=== PATIENT | male | born 1960 | race Caucasian/White ===

== ENCOUNTER 2018-05-06 10:24 | Inpatient (IN) | payer OTHER ==
[~2018-05-06] VITALS: Ht 172.7 cm; Wt 156.3 kg
[2018-05-06] VITALS (7 sets, daily range): BP systolic 74–133; BP diastolic 30–85
[~2018-05-06 10:24] MED LIST: AUGMENTIN 875875 MG PO; LEVOTHYROXINE 0.15MG PO; METFORMIN HCL500 MG PO; NORCO 5-325 TA1 EACH PO; NOVOLOG100 UNIT/1 SUBQ; PREDNISONE 10 M10 MG PO; TRAMADOL 50 MG50 MG PO
[2018-05-06] MEDS ORDERED: LEVOXYL175 MCG PO (10:35)
[2018-05-06] MEDS ORDERED: LISINOPRIL10 MG PO (10:35)
[2018-05-06] MEDS ORDERED: GLYBURIDE 5 MG T5 M1 PO (10:36)
[2018-05-06] MEDS ORDERED: ZOCOR40 MG PO (10:36)
[2018-05-06] MEDS ORDERED: MULTIVITAMINS1 EAC7 PO (10:36)
[2018-05-06 10:43] LABS: HEMATOCRIT 41.6 % (42.0-52.0); HEMOGLOBIN 13.2 gm/dL (14.0-18.0); MCH 29.5 pg (26.0-34.0); MCHC 31.7 g/dL (28.0-37.0); MCV 93.1 fL (80.0-100.0); MPV 10.8 fl. (7.2-11.1); NUCLEATED RBCS 0 /100WBC; PLATELET COUNT* 379 thou/uL (150-400); RBC 4.47 mil/uL (4.50-6.00); RDW-CV 14.2 % (10.5-14.5); WBC 26.5 thou/uL (4.0-11.0)
[2018-05-06 10:52] LABS: ANION GAP 23 mmol/L (7-16); BUN 35 mg/dL (7-18); CALCIUM 8.8 mg/dL (8.5-10.1); CHLORIDE 90 mmol/L (98-107); CO2 17 mmol/L (21-32); CREATININE 1.8 mg/dL (0.6-1.3); GLUCOSE 466 mg/dL (70-99); POTASSIUM 3.8 mmol/L (3.5-5.1); SODIUM 130 mmol/L (136-145)
[2018-05-06 10:56] LABS: APTT 33.5 Seconds (25.0-31.3)
[2018-05-06 11:01] LABS: URINE BLOOD 2+ (Negative); URINE CLARITY CLEAR; URINE COLOR YELLOW; URINE GLUCOSE-RANDOM 2+ (Negative); URINE KETONES 2+ (Negative); URINE LEUKOCYTES-REFLEX NEGATIVE (Negative); URINE NITRITE-REFLEX NEGATIVE (Negative); URINE PROTEIN 3+ (Negative); URINE SPECIFIC GRAVITY >= 1.030 (1.005-1.030); URINE UROBILINOGEN 0.2 E.U./dl (0.2-1.0)
[2018-05-06 11:02] LABS: ICTOTEST (BILI CONFIRMATORY) Negative (Negative); URINE BILIRUBIN 1+ (Negative)
[2018-05-06 11:04] LABS: ABSOLUTE EOSINOPHILS 0.3 thou/uL (0.0-0.7); ABSOLUTE LYMPHOCYTES 1.1 thou/uL (0.8-5.3); ABSOLUTE MONOCYTES 0.8 thou/uL (0.0-1.2); ABSOLUTE NEUTROPHILS 24.4 thou/uL (1.6-8.1); ALBUMIN 1.5 g/dL (3.4-5.0); ALKALINE PHOSPHATASE 112 U/L (46-116); HYPOCHROMASIA 1+; MAGNESIUM 2.8 mg/dL (1.8-2.4); NT-PRO BRAIN NAT PEPTIDE 1515 pg/mL (<300); PLATELET ESTIMATE INCREASED; SGOT 29 U/L (15-37); SGPT 20 U/L (30-65); TOTAL BILIRUBIN 0.6 mg/dL (<0.1-1.0); TOTAL PROTEIN 8.1 g/dL (6.4-8.2); TOXIC GRANULATION 1+; TROPONIN-I LEVEL <0.06 ng/mL (<0.06)
[2018-05-06 11:10] LABS: INFLUENZA A ANTIGEN None Detected (None Detect); INFLUENZA B ANTIGEN None Detected (None Detect)
[2018-05-06 11:10] LABS: AMORPHOUS URATES Few /LPF (None Seen); CASTS None Seen /LPF (None Seen); SQUAMOUS 0-3 Few /LPF (0-3); URINE RBC 0-2 Rare /HPF (0-2); URINE WBC-REFLEX 0-5 Rare /HPF (0-5)
[2018-05-06 11:39] LABS: BE -11.4 mmol/L (-2 to +3); HCO3 13.6 mmol/L (22.0-26.0); PCO2 28.8 mmHg (35.0-45.0); PO2 116.5 mmHg (75.0-100.0)
[2018-05-06 11:40] LABS: pH 7.293 (7.340-7.450)
[2018-05-06 13:39] LABS: TROPONIN-I LEVEL 0.1 ng/mL (<0.06)
[2018-05-06 14:04] LABS: BE -26.5 mmol/L (-2 to +3); PO2 114.7 mmHg (75.0-100.0)
[2018-05-06 14:06] LABS: PCO2 62.8 mmHg (35.0-45.0); pH 6.774 (7.340-7.450)
[2018-05-06 15:18] LABS: BE -21.8 mmol/L (-2 to +3); PCO2 49.1 mmHg (35.0-45.0)
[2018-05-06 15:19] LABS: HCO3 10.4 mmol/L (22.0-26.0); pH 6.945 (7.340-7.450)
[2018-05-06 16:30] LABS: HEMATOCRIT 43.5 % (42.0-52.0); HEMOGLOBIN 12.5 gm/dL (14.0-18.0); MCH 29.4 pg (26.0-34.0); MCHC 28.8 g/dL (28.0-37.0); MPV 10.5 fl. (7.2-11.1); RBC 4.26 mil/uL (4.50-6.00); RDW-CV 16.3 % (10.5-14.5); WBC 35.1 thou/uL (4.0-11.0)
[2018-05-06 16:39] LABS: CALCIUM 8.7 mg/dL (8.5-10.1); POTASSIUM 4.7 mmol/L (3.5-5.1)
[2018-05-06 16:42] LABS: CREATININE 2.9 mg/dL (0.6-1.3)
[2018-05-06 16:48] LABS: TOTAL BILIRUBIN 0.7 mg/dL (<0.1-1.0); TOTAL PROTEIN 6.3 g/dL (6.4-8.2)
[2018-05-06 16:52] LABS: TROPONIN-I LEVEL 0.78 ng/mL (<0.06)
[2018-05-06 17:09] LABS: INR 1.4; PROTIME 13.9 Seconds (9.20-11.50)
[2018-05-06 17:29] LABS: ALBUMIN 1.1 g/dL (3.4-5.0)
[2018-05-06 18:28] LABS: BE -15.8 mmol/L (-2 to +3); HCO3 13.6 mmol/L (22.0-26.0); PCO2 45.6 mmHg (35.0-45.0); PO2 60.8 mmHg (75.0-100.0)
[2018-05-06 18:30] LABS: pH 7.093 (7.340-7.450)
[2018-05-06 21:13] LABS: BE -18.1 mmol/L (-2 to +3); HCO3 12.4 mmol/L (22.0-26.0); PCO2 47.7 mmHg (35.0-45.0)
[2018-05-06 21:14] LABS: pH 7.034 (7.340-7.450)
[2018-05-06 21:36] LABS: CALCIUM 7.2 mg/dL (8.5-10.1); CREATININE 3.3 mg/dL (0.6-1.3)
[2018-05-06 21:38] LABS: POTASSIUM 3.2 mmol/L (3.5-5.1)
[2018-05-06 21:44] LABS: ALBUMIN 0.9 g/dL (3.4-5.0); PHOSPHORUS* 8.6 mg/dL (2.5-4.9)
[2018-05-06 22:02] LABS: TROPONIN-I LEVEL 2.18 ng/mL (<0.06)
[2018-05-06 22:19] LABS: CK-MB MASS 21.9 ng/mL (<0.5-3.6)
[2018-05-06 23:33] LABS: INR 1.8; PROTIME 18.6 Seconds (9.20-11.50)
[2018-05-06 23:40] LABS: FIBRINOGEN 493 mg/dL (200-340)
[2018-05-07 00:22] LABS: BE -23.1 mmol/L (-2 to +3)
[2018-05-07 00:23] LABS: HCO3 10.7 mmol/L (22.0-26.0); PCO2 60.3 mmHg (35.0-45.0); PO2 58.3 mmHg (75.0-100.0); pH 6.866 (7.340-7.450)
[2018-05-07 01:31] LABS: BE -25.8 mmol/L (-2 to +3); PO2 66.4 mmHg (75.0-100.0)
[2018-05-07 01:32] LABS: HCO3 7.7 mmol/L (22.0-26.0)
[2018-05-07 02:17] LABS: ALBUMIN 0.8 g/dL (3.4-5.0); CALCIUM 6.9 mg/dL (8.5-10.1); CREATININE 3.3 mg/dL (0.6-1.3); MAGNESIUM 3.4 mg/dL (1.8-2.4); PHOSPHORUS* 12.3 mg/dL (2.5-4.9)
[2018-05-07 02:31] LABS: POTASSIUM 4.4 mmol/L (3.5-5.1)
[2018-05-07 04:00] VITALS: BP 56/48
[2018-05-07 05:00] VITALS: BP 55/36; BP 56/48
--- NOTE | 2018-05-07 12:55 | EKG ---
[place] [address] ELECTROCARDIOGRAM REPORT Name: TEREZA GARZA Room: [address] ADM IN .R.#: [id number] Admission: 05/06/18 Attend Phys: Allison Early Discharge: Date of : 58 Report #: [id number] THIS REPORT FOR: //name// [facility] ED Test Date: 2018-05-06 Test Time: 10:29:54 Pat Name: TEREZA GARZA Department: Room: [facility] Gender: M Director Supply: VERNON : 1960 Requested By: Maame Muñoz Order Number: [id number] Lora MD: Reji Sanchez Measurements Intervals [place] Rate: 135 P: 20 AL: 101 QRS: -78 QRSD: 134 T: 1 QT: 320 QTc: 480 Interpretive Statements artifacts Sinus tachycardia Right bundle branch block Inferior infarct, old Compared to ECG 10/22/2016 01:34:07 No significant changes Electronically Signed On 05-07-2018 12:55:09 CDT by Reji Sanchez [email or web address] <ELECTRONICALLY SIGNED> By: Reji Sanchez MD, [facility] 05/07/18 [id number] 1029 1029 Reji Sanchez MD, [facility] /EPI
--- NOTE | 2018-05-07 12:57 | EKG ---
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
--- NOTE | 2018-05-14 12:28 | CON ---
[facility] [address] [place] [address] CONSULTATION Name: TEREZA GARZA Room: [address]#: [id number] Admission: 05/06/18 Attend Phys: Allison Early Discharge: 05/07/18 Date of : 58 Report #: [id number] THIS REPORT FOR: //name// CC: Aki Lopez TYPE OF REPORT: Cardiology consultation. INDICATION: Ventricular arrhythmias in the setting of respiratory arrest. HISTORY OF PRESENT ILLNESS: The patient is a morbidly obese 57-year-old gentleman with no documented prior cardiac history with the exception of hypertension. The patient apparently has been having increasing shortness of breath for the last 2 weeks. The patient was brought to the Emergency Room on BiPAP. The patient had rapid decline with associated hypoxia and bradycardia prompting initiation of a code blue. The patient was given atropine followed by epinephrine and intubated. Shortly thereafter, the patient developed ventricular fibrillation and tachycardia for which he was cardioverted. He had had some pulseless electrical activity prior to this according to the ER runner. The patient was placed on multiple pressors, given fluid boluses and IV antibiotics and is in critical condition at the time of my evaluation. The patient is a morbidly obese white male who is intubated and presently in the Emergency Room. No history is available beyond that described above. Initial EKG showed sinus tachycardia with right bundle-branch block. There are diffuse ST-segment changes noted with the tachycardia. His initial troponin is 0.1. PAST MEDICAL HISTORY: 1. Diabetes. 2. Hypertension. 3. Hypothyroidism. 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 ALLERGIES: No known drug allergies. HOME MEDICATIONS: Glyburide 5 mg p.o. b.i.d., levothyroxine 175 mcg daily, lisinopril 10 mg daily, metformin 500 mg q.a.c., multivitamin 1 tablet daily and simvastatin 40 mg daily. FAMILY HISTORY: Not obtainable. SOCIAL HISTORY: Not obtainable. REVIEW OF SYSTEMS: Not obtainable. PHYSICAL EXAMINATION: VITAL SIGNS: Presently, blood pressure is 88/52 with a pulse rate of 112. GENERAL: This is a morbidly obese white male [place] [address] CONSULTATION Name: TEREZA GARZA Room: [address]#: [id number] Admission: 05/06/18 Attend Phys: Allison Early Discharge: 05/07/18 Date of : 58 Report #: [id number] cyanotic in appearance. HEENT: Head is normocephalic and atraumatic. Mucous membranes appear moist. NECK: Thick without obvious jugular venous distention. CHEST: Reveals diffusely decreased breath sounds with rhonchi bilaterally. CARDIOVASCULAR: Reveals a tachycardic rhythm with distant S1 and S2. I do not appreciate gallop or murmur. ABDOMEN: Reveals a protuberant abdomen. The abdomen appears soft and not rigid. EXTREMITIES: Show 1+ edema. SKIN: Dry. LABORATORY DATA: Reviewed. Sodium 130, potassium 3.8, chloride 90, bicarbonate 17, BUN 35, creatinine 1.8 and serum glucose 466. LFTs within normal limits. Troponin 0.10. NT-pro-BNP 2475. White blood cell count 26.5, hemoglobin 13.2 and platelet count 379. RADIOLOGICAL DATA: Chest x-ray shows increased atelectasis or infiltrates in the lower lobes, right greater than left. There is no pulmonary vascular congestion. IMPRESSION AND RECOMMENDATIONS: 1. Ventricular arrhythmias, likely due to stimulation from epinephrine in the setting of profound hypoxia and acidosis. I do not believe the patient needs an antiarrhythmic agent at this time. We will follow clinically. 2. Profound hypotension likely secondary to sepsis. The patient has been started on fluid resuscitation as well as antibiotics and pressors for pressure support. 3. Acute respiratory failure. Etiology not clear. This could be in the setting of a possible pulmonary embolus. Unfortunately, due to the patient's critical nature, further evaluation is not available at this time. In lieu of evaluation, I will start a heparin drip and bolus pending further evaluation as the patient is not currently having any bleeding problems. 4. Diabetes per primary physician. 5. Acute renal failure. Recommend a Nephrology consult. 6. In-hospital arrest, code ice protocol has been initiated. 7. Morbid obesity. <ELECTRONICALLY SIGNED> By: Néstor Chun MD, FACC 05/14/18 1228 1555 2130Mickatherine Chun MD, FACC /nt
== END 2018-05-07 06:55 | DRG 871 ==
LOC: M.ERS 10:24 → M.ICU 12:00 → M.TBA-ER 12:00 → M.ICU 15:52 → M.ORTHSURG 05-07 06:53 → M.ICU 05-07 10:54 → M.ORTHSURG 05-07 10:54
PROVIDERS: Internal Medicine Cardiovascular Disease; Personal Emergency Response Attendant; ADMIT Internal Medicine
PROC: 02HV33Z Insertion of Infusion Device into Superior Vena Cava, Percutaneous Approach (ICD-10-PCS; principal; 2018-05-06)
PROC: 5A1935Z Respiratory Ventilation, Less than 24 Consecutive Hours (ICD-10-PCS; 2018-05-06)
PROC: 0BH17EZ Insertion of Endotracheal Airway into Trachea, Via Natural or Artificial Opening (ICD-10-PCS; 2018-05-06)
PROC: 5A09357 Assistance with Respiratory Ventilation, Less than 24 Consecutive Hours, Continuous Positive Airway Pressure (ICD-10-PCS; 2018-05-06)
PROC: 03HB33Z Insertion of Infusion Device into Right Radial Artery, Percutaneous Approach (ICD-10-PCS; 2018-05-06)
PROC: 5A12012 Performance of Cardiac Output, Single, Manual (ICD-10-PCS; 2018-05-07)
DX: A41.9 Sepsis, unspecified organism (principal); R65.21 Severe sepsis with septic shock; J96.00 Acute respiratory failure, unspecified whether with hypoxia or hypercapnia; I26.99 Other pulmonary embolism without acute cor pulmonale; E11.10 Type 2 diabetes mellitus with ketoacidosis without coma; J18.9 Pneumonia, unspecified organism; K25.4 Chronic or unspecified gastric ulcer with hemorrhage; N17.9 Acute kidney failure, unspecified; I47.2 Ventricular tachycardia; Z68.43 Body mass index [BMI] 50.0-59.9, adult; I46.9 Cardiac arrest, cause unspecified; E78.00 Pure hypercholesterolemia, unspecified; F17.210 Nicotine dependence, cigarettes, uncomplicated; E66.01 Morbid (severe) obesity due to excess calories; E03.9 Hypothyroidism, unspecified; I95.9 Hypotension, unspecified; I12.9 Hypertensive chronic kidney disease with stage 1 through stage 4 chronic kidney disease, or unspecified chronic kidney disease; N18.9 Chronic kidney disease, unspecified; E11.22 Type 2 diabetes mellitus with diabetic chronic kidney disease; Z79.899 Other long term (current) drug therapy